=== PATIENT | male | born 1955 | race Caucasian/White ===

== ENCOUNTER 2020-03-04 15:10 | Emergency (ER) | payer OTHER ==
[~2020-03-04] VITALS: Ht 165.1 cm; Wt 56.2 kg
--- NOTE | 2020-03-04 15:24 | NUR ---
BIBA BLS TAKEN TO BED 6
[2020-03-04] MEDS ORDERED: NACL 0.9% 1,000 ML IV ONE (15:30)
[2020-03-04] MEDS ORDERED: KETOROLAC 30 MG/ML VIAL IVP ONE (15:30)
[2020-03-04 15:35] VITALS: BP 110/79
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
[2020-03-04 15:57] LABS: BASOPHILS % (AUTO) 0.5 % (0.0-2.0); EOSINOPHILS # (AUTO) 0.3 K/uL (0-0.4); EOSINOPHILS % (AUTO) 5.6 % (0.0-4.0); HEMOGLOBIN 11.2 g/dL (12.0-18.0); LYMPHOCYTES # (AUTO) 0.9 K/uL (2.0-11.5); LYMPHOCYTES % (AUTO) 16.8 % (20.5-51.1); MEAN CORPUSCULAR HEMOGLOBIN 29 pg (27-31); MEAN CORPUSCULAR HGB CONC 33 g/dL (33-37); MEAN CORPUSCULAR VOLUME 86.8 fL (80-94); MONOCYTES # (AUTO) 0.7 K/uL (0.8-1.0); MONOCYTES % (AUTO) 12.6 % (1.7-9.3); NEUTROPHILS # (AUTO) 3.6 K/uL (1.8-7.7); NEUTROPHILS % (AUTO) 64.5 % (42.2-75.2); PLATELET COUNT (AUTO) 215 K/uL (140-450); RED BLOOD CELL COUNT(AUTO) 3.91 MIL/uL (4.20-6.10); RED CELL DISTRIBUTION WIDTH 17.6 % (11.6-13.7); WHITE BLOOD COUNT (AUTO) 5.6 K/uL (4.8-10.8)
[2020-03-04 16:17] LABS: ANION GAP 13.8 (8-16); CARBON DIOXIDE 23.8 mmol/L (21-32); CREATININE 1.1 mg/dL (0.6-1.3); POTASSIUM 3.6 mmol/L (3.5-5.1); TOTAL BILIRUBIN 0.6 mg/dL (0.0-1.0)
[2020-03-04 16:20] LABS: PROTHROMBIN TIME 10.8 secs (10.8-13.4)
--- NOTE | 2020-03-04 16:53 | NUR ---
PT RESTING IN BED. PT IS EASILY AROUSEABLE TO VOICE. PT STATES PAIN IS 3/10 IF STITTING STILL. SIDE RAILS UP AND BED LOCKED IN LOWEST POSITION.
[2020-03-04] MEDS ORDERED: MORPHINE SULFATE 4 MG/ML SYR IVP PRN (18:15)
[2020-03-04] MEDS ORDERED: NACL 0.9% 1,000 ML IV SCH (18:15)
[2020-03-04] MEDS ORDERED: ACETAMINOPHEN 325 MG TAB PO PRN (18:15)
--- NOTE | 2020-03-04 18:40 | NUR ---
PT ASLEEP IN BED AND EASILY AROUSEABLE TO VOICE. CHEST RISE AND FALL EQUAL. ALL NEEDS OF THE PT METR AT THIS TIME. SIDE RAILS UP FOR SAFETY. WILL CONTINUE TO MONITOR
--- NOTE | 2020-03-04 18:40 | NUR ---
Spoke to Dr. Martínez orthopedic doctor regarding patient. No consultation was ordered at this time. Images will be sent to doctor for him to review.
--- NOTE | 2020-03-04 19:23 | NUR ---
REPORT RECEIVED FROM PHIL GONZALEZ FOR CONTINUITY OF CARE.
--- NOTE | 2020-03-04 19:24 | NUR ---
Spoke to Dr. Daigle and advised him of recommendation from Ortho to transfer patient to [facility]. Admission will be undone.
--- NOTE | 2020-03-04 19:30 | NUR ---
PT RESTING IN BED,LOCKED AND IN LOWEST POSITION, HOB ELEVATED, SIDE RAIL X2 FOR PT SAFETY. VISIBLE RISE AND FALL OF CHEST, RR EVEN AND UNLABORED , VSS .
--- NOTE | 2020-03-04 20:30 | NUR ---
PT SLEEPING IN BED, LOCKED AND IN LOWEST POSITION, HOB ELEVATED, SIDE RAIL X2 FOR PT SAFETY. AROUSABLE TO VERBAL STIMULATION, VISIBLE RISE AND FALL OF CHEST, VSS.
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
[2020-03-04 21:05] VITALS: BP 138/78
--- NOTE | 2020-03-04 21:05 | NUR ---
[facility] ambulance service transported pt to [facility] at this time.
[2020-03-05] MEDS ORDERED: ENOXAPARIN 40 MG/0.4 ML SYR SUBQ SCH (09:00)
== END 2020-03-04 21:05 | disposition short-term general hospital (02) ==
LOC: MED 15:10 → MMU 18:17 → UNDOADMIN 18:17 → MED 21:05
DX: S72.012A Unspecified intracapsular fracture of left femur, initial encounter for closed fracture (principal); Z59.0 Homelessness; W19.XXXA Unspecified fall, initial encounter; Y93.89 Activity, other specified; Y92.89 Other specified places as the place of occurrence of the external cause; Y99.8 Other external cause status
CPT/HCPCS: 36415; 71045; 72192; 80053; 85025; 85610; 85730; 96361; 96374; 99285; J1885; J7030

== ENCOUNTER 2021-07-04 08:34 | Emergency (ER) | payer OTHER, MEDICARE ==
[~2021-07-04] VITALS: Ht 165.1 cm; Wt 65.8 kg
--- NOTE | 2021-07-04 08:36 | NUR ---
PT ARA VIA GURNEY TO BED 12.
[2021-07-04 08:43] VITALS: BP 113/64
--- NOTE | 2021-07-04 08:57 | NUR ---
PT BIB [facility] C/O RIGHT ANKLE PAIN, HX OF ARTHRITIS CHRONIC PAIN. DENIES ANY NEW INJURY OR TRAUMA. NAD.
[2021-07-04] MEDS ORDERED: IBUPROFEN 600 MG TAB PO ONE (09:05)
[2021-07-04] MEDS ORDERED: IBUP-2213 PO (09:41)
[2021-07-04 09:48] VITALS: BP 109/80
== END 2021-07-04 09:47 | disposition home or self-care (01) ==
LOC: MED 08:34
DX: M25.571 Pain in right ankle and joints of right foot (principal); Z79.1 Long term (current) use of non-steroidal anti-inflammatories (NSAID)
CPT/HCPCS: 73610; 99283; Q0092